=== PATIENT | female | born 1990 | race Caucasian/White ===

== ENCOUNTER 2020-05-25 18:04 | Emergency (ER) | payer BC, SELFPAY ==
--- NOTE | ~2020-05-25 | XR_ITS ---
EXAMINATION: LEFT ANKLE 2 VIEWS LEFT FOOT 3 VIEWS LEFT TIB-FIB 2 VIEWS CLINICAL INFORMATION: Pain status post fall COMPARISON: None TECHNIQUE: As above nonweightbearing FINDINGS: Acute erosion type fracture subluxation of the ankle joint. Transversely oriented fracture medial malleolus at the level the ankle mortise. Mild comminuted minimally displaced fracture distal fibula diaphysis. Widening of the medial ankle mortise. No fracture fragments seen within the joint space. No proximal tibiofibular abnormality. No mid or forefoot abnormality. Subtalar joint intact. XR/XR ankle LT 2V IMPRESSION: Eversion type fracture subluxation about the ankle joint as above.
--- NOTE | ~2020-05-25 | XR_ITS ---
EXAMINATION: LEFT ANKLE 2 VIEWS LEFT FOOT 3 VIEWS LEFT TIB-FIB 2 VIEWS CLINICAL INFORMATION: Pain status post fall COMPARISON: None TECHNIQUE: As above nonweightbearing FINDINGS: Acute erosion type fracture subluxation of the ankle joint. Transversely oriented fracture medial malleolus at the level the ankle mortise. Mild comminuted minimally displaced fracture distal fibula diaphysis. Widening of the medial ankle mortise. No fracture fragments seen within the joint space. No proximal tibiofibular abnormality. No mid or forefoot abnormality. Subtalar joint intact. XR/XR foot LT 2V IMPRESSION: Eversion type fracture subluxation about the ankle joint as above.
--- NOTE | ~2020-05-25 | XR_ITS ---
EXAMINATION: LEFT ANKLE 2 VIEWS LEFT FOOT 3 VIEWS LEFT TIB-FIB 2 VIEWS CLINICAL INFORMATION: Pain status post fall COMPARISON: None TECHNIQUE: As above nonweightbearing FINDINGS: Acute erosion type fracture subluxation of the ankle joint. Transversely oriented fracture medial malleolus at the level the ankle mortise. Mild comminuted minimally displaced fracture distal fibula diaphysis. Widening of the medial ankle mortise. No fracture fragments seen within the joint space. No proximal tibiofibular abnormality. No mid or forefoot abnormality. Subtalar joint intact. XR/XR tibia fibula LT 2V IMPRESSION: Eversion type fracture subluxation about the ankle joint as above.
[2020-05-25 18:12] VITALS: BP 143/99; PULSE 114; RESP 18; TEMP 36.1; O2SAT 99
[2020-05-25 18:19] VITALS: BP 143/99; PULSE 114; RESP 18; TEMP 36.1; O2SAT 99; BMI 27.4
--- NOTE | 2020-05-25 18:23 | ED_ITS ---
HPI - Extremity Injury (Lower) General Chief Complaint: Extremity Injury, Lower Stated Complaint: foot inj Time Seen by Provider: 05/25/20 18:14 Source: patient and family Mode of arrival: wheelchair Limitations: no limitations History of Present Illness HPI Narrative: 30-year-old female here with left ankle pain. The patient tells me that she was roller-skating and came to a stop her ankle then inverted and she fell landing onto the ankle. Denies hitting her head or loss of consciousness. Having pain and swelling over the ankle now. No previous injury. Related Data Previous Rx's Medication Instructions Recorded ibuprofen 600 mg PO TID PRN #20 tab 05/25/20 oxycodone 5 mg PO Q6H PRN #15 tab 05/25/20 Allergies Allergy/AdvReac Type Severity Reaction Status Date / Time No Known Allergies Allergy Verified 05/25/20 18:21 Review of Systems Review of Systems: Yes all other systems are reviewed and are negative Constitutional: Constitutional: Reports no additional constitutional complaints, Denies body ache(s), Denies chills, Denies fever(s), Denies headache(s) and Denies weakness Eyes: Eyes: Reports no additional eye complaints and Denies change in vision ENT: Reports system reviewed and no additional complaints, except as documented, Denies dizziness, Denies headache(s), Denies nasal congestion, Denies nasal discharge and Denies neck pain Cardiovascular: Cardiovascular: Reports no additional cardiovascular complaints, Denies chest pain, Denies leg edema and Denies dyspnea Respiratory: Respiratory: Reports no additional respiratory complaints, Denies cough and Denies dyspnea Gastrointestinal: Gastrointestinal: Reports no additional gastrointestinal complaints, Denies abdominal pain, Denies diarrhea, Denies nausea and Denies vomiting Genitourinary: Genitourinary: Reports no additional female genitourinary complaints and Denies urinary incontinence Musculoskeletal: Musculoskeletal: Reports no additional musculoskeletal complaints, Denies back pain, Reports arthralgias, Reports joint swelling, Rep orts limited range of motion, Denies neck pain, Denies numbness and Denies tingling Integumentary/Breasts: Skin/Breast: Reports system reviewed and no additional complaints, except as docu and Denies rash Neurologic: Reports system reviewed and no additional complaints, except as documented, Denies Abnormal speech present, Denies dizziness, Denies headache(s), Denies numbness, Denies tingling and Denies weakness PMFSH Past Medical History Attestation statement: The following information was validated with the patient. Source: old records reviewed and nursing notes reviewed Medical History No known health problems Social History Social History Advance Directives: No Advance Directives Information Provided: No Physical Exam Vital Signs: Vital Signs: Last Vital Signs Temp 97.0 F 05/25/20 18:19 Pulse 114 H 05/25/20 18:19 Resp 18 05/25/20 18:19 BP 143/99 H 05/25/20 18:19 Pulse Ox 99 05/25/20 18:19 Body Mass Index 27.4 Const: General: cooperative, healthy appearing, comfortable and no acute distress Orientation/consciousness: patient oriented x3 Limitations: no limitations HENMT: Head: Yes normal to inspection Ears: hearing grossly normal bilaterally General nose exam: Normal external nose present Face and sinus: Yes normal facial exam Mouth: Normal oral and palatal mucosa present Throat: Yes posterior oropharynx normal Eyes: General: appearance normal, both eyes and all related structures Pupils: Equal, round and reactive pupils present Neck: Neck: Yes normal visual inspection Chest: Chest palpation & inspection: normal inspection of the chest Resp: Effort & Inspection: normal respiratory effort Auscultation: clear to auscultation bilaterally Cardio: Rate: regular rate Rhythm: regular rhythm Peripheral pulses: Peripheral pulses 2+ throughout GI: Inspection: Yes normal to inspection Palpation (GI): Soft to palpation and nontender Auscultation: normal bowel sounds Back/Spine/Pelvis: Thoracic/Lumbar Spine: thoracic and lumbar spine normal to inspection Skin: General skin exam: no rashes or lesions noted Neuro: General: patient oriented x3, no focal motor deficits and normal sensation to monofilament Cranial nerves: Yes Equal, round and reactive pupils present Cognition (Neuro): normal cognition Speech: No Abnormal speech present Gait exam (Neuro): Normal gait present Motor exam (neuro): 5/5 motor strength present throughout Extrem: Other: Swelling moderate with deformity over the left medial aspect of the ankle. No tenting of the skin. CMS intact distally to the ankle. Palpable pulse. Able to plantar flex and dorsiflex the foot. No pain over the foot General: Yes normal to inspection Course Course Course Narrative: Left ankle pain status post inversion injury. Will need x- rays and analgesia 0-X-ray shows acute erosion type fracture subluxation of the ankle joint. Transversely oriented fracture medial malleolus at the level the ankle mortise. Mild comminuted minimally displaced fracture distal fibula diaphysis. Widening of the medial ankle mortise. No fracture fragments seen within the joint space. Discussed patient with Clotilde PEARSON from Orthopedics. Recommended patient being placed in a stirrup and posterior splint with crutches and nonweightbearing and following up in the office. Patient placed in splint with extra padding. Crutches with teaching by tech. Reviewed worrisome signs and symptoms including paresthesias, cold pill foot, severe pain and when to return to the emergency department. Comfortable discharge home. Procedures Orthopedic Splinting/Casting Injury #1: Side: left Lower Extremity Injury Location: lower leg Lower Extremity Immobilizer: posterior splint and stirrup splint Other Orthopedic Equipment: crutches MDM - Extremity Injury (Lower) Medical Records Attestation: I reviewed the patient's medical records. Lab Data Attestation: I reviewed the patient's lab results. Imaging Data Left tibia/fibula/ankle/foot: Attestation: I personally reviewed and interpreted this imaging study as follows: Radiologist's impression: Acute erosion type fracture subluxation of the ankle joint. Transversely oriented fracture medial malleolus at the level the ankle mortise. Mild comminuted minimally displaced fracture distal fibula diaphysis. Widening of the medial ankle mortise. No fracture fragments seen within the joint space. No proximal tibiofibular abnormality. No mid or forefoot abnormality. Subtalar joint intact. Discharge Plan Discharge Clinical Impression: Closed fracture of medial malleolus of left ankle, Left fibular fracture Patient Disposition: Home, Self-Care Instructions: Ankle Fracture (ED) Additional Instructions: ELEVATION IS THE MOST IMPORTANT THING ON 3 OR MORE PILLOWS Ice 20 minutes on and 20 minutes off Strict non weight bearing If you do not hear from orthopedics by Tuesday then give them a call Return here for numbness/tingling or pale/cold foot The splint cannot get wet Prescriptions: New ibuprofen 600 mg tablet 600 mg PO TID PRN (Reason: pain) Qty: 20 RF: 0 oxycodone 5 mg tablet 5 mg PO Q6H PRN (Reason: pain) Qty: 15 RF: 0 Referrals: Gómez Man PA-C [Phys[facility]] - 2 days Stand Alone Forms: Work/School Release
[2020-05-25] MEDS: oxyCODONE HCl Immed Release 5 MG TABLET PO (18:35)
[2020-05-25] MEDS: Ibuprofen 800 MG TABLET PO (18:36)
--- NOTE | 2020-05-25 19:19 | PC.NURSE ---
SHORT LEG AND STIRRUP SPLINT APPLIED TO PATIENTS L LEG.
== END 2020-05-25 19:15 | disposition home or self-care (01) ==
PROVIDERS: Emergency Provider Internal Medicine
DX: S82.52XA Displaced fracture of medial malleolus of left tibia, initial encounter for closed fracture (principal); M25.572 Pain in left ankle and joints of left foot; Y93.51 Activity, roller skating (inline) and skateboarding; Y92.410 Unspecified street and highway as the place of occurrence of the external cause; Y99.9 Unspecified external cause status; Z79.899 Other long term (current) drug therapy
CPT/HCPCS: 29515; 73590; 73600; 73620; 99283; 99284

== ENCOUNTER → 2020-05-27 12:55 | Outpatient (BNVA) | payer BC, SELFPAY | PROVIDERS: Visit Provider Physician Assistant ==

== ENCOUNTER → 2020-05-30 12:00 | Day surgery (SDC) | payer BC, SELFPAY ==
[2020-05-29 09:41] VITALS: BMI 27.4
--- NOTE | 2020-05-30 12:54 | PC.NURSE ---
DR. POWER AT BEDSIDE AND ACCESSED PATIENTS LEFT LOWER EXTREMITY/ANKLE. PROCEDURE BEING CANCELLED RELATED TO BLISTERS, ETC. DR. POWER DOES NOT FEEL PATIENT READY FOR SURGERY.
--- NOTE | 2020-05-30 13:09 | MHC.MBSS ---
DR. POWER PLACING A NEW DRESSING ON PATIENT'S LEFT LOWER EXTREMITY/ANKLE. DR. POWER EXPLAINING EVERYTHING TO PATIENT AND PT'S FAMILY. PT TO BE RESCHEDULED. Unspecified fracture of shaft of unspecified fibula, initial encounter for closed fracture (05/30/20) Displaced fracture of medial malleolus of left tibia, initial encounter for closed fracture (05/30/20)
--- NOTE | 2020-05-30 13:41 | PC.NURSE ---
JANNET DOMÍNGUEZ GAVE PATIENT DISCHARGE INSTRUCTIONS AND PATIENT TO BE RESCHEDULED FOR NEXT WEEK. PATIENT BROUGHT DOWN IN WC AND HER FIANCE DROVE HER HOME.
== END ==
PROVIDERS: Visit Provider Orthopaedic Surgery
DX: S82.52XA Displaced fracture of medial malleolus of left tibia, initial encounter for closed fracture (principal); Z53.09 Procedure and treatment not carried out because of other contraindication; S90.522A Blister (nonthermal), left ankle, initial encounter; W18.39XA Other fall on same level, initial encounter; X50.1XXA Overexertion from prolonged static or awkward postures, initial encounter; Y93.51 Activity, roller skating (inline) and skateboarding; Y92.9 Unspecified place or not applicable; Y99.8 Other external cause status

== ENCOUNTER 2020-06-03 09:07 | Day surgery (SDC) | payer BC, SELFPAY ==
[2020-06-03] VITALS (7 sets, daily range): BP systolic 126–146; BP diastolic 77–88; PULSE 103–130; RESP 16–18; TEMP 36.6–36.9; O2SAT 96–100; BMI 28.3
--- NOTE | ~2020-06-03 | FL_ITS ---
EXAMINATION: Intraoperative fluoroscopy CLINICAL INFORMATION: Left ankle ORIF COMPARISON: Left ankle x-rays November 24, 2020 TECHNIQUE: Intraoperative fluoroscopy was provided for use by Dr. Vargas. A total of 4 images were saved to PACS. A radiologist was not present during imaging. Today's dictation is only for administrative purposes to document intraoperative fluoroscopic usage. TOTAL FLUOROSCOPIC TIME: 0.4 minutes FL/FL guidance in OR FINDINGS~\^^ Intraoperative fluoroscopy provided for use by Dr. Vargas. Please see operative note for detailed findings.
[2020-06-03 10:51] LABS: UPreg QC Valid YES; Urine Pregnancy NEGATIVE (NEGATIVE)
--- NOTE | 2020-06-03 11:13 | P.CONAN_ITS ---
PMFSH Active Problems Active Problems: All Active Problems (Updated 05/27/20 @ 14:47 by Kiki shelley PA-C) Closed fracture shaft of fibula (Acute) Fracture of medial malleolus of left tibia (Acute) Past Medical History Medical History No known health problems Social History Social History (Updated 05/27/20 @ 13:03 by Cecy Stovall) Smoking Status: Current some day smoker Use of substances other than those prescribed or required for medical reasons: Yes Advance Directives: No Advance Directives Information Provided: Yes Current occupational status: employed Current occupation: [employer] max/right handed Meds Allergies Allergy/AdvReac Type Severity Reaction Status Date / Time No Known Allergies Allergy Verified 06/03/20 11:02 Exam Exam Date and Time: June 03, 2020 1113 Height,Weight and Vital Signs: Height 5 ft 2 in Weight 70.307 kg Last Vital Signs Temp 97.8 F 06/03/20 11:05 Pulse 104 H 06/03/20 11:05 Resp 16 06/03/20 11:05 BP 126/84 06/03/20 11:05 Pulse Ox 98 06/03/20 11:05 Pertinent Lab Results Pertinent Lab Results: Laboratory Tests 06/03/20 10:35 Urine Test NEGATIVE Airway Mallampati Class: I TM Dist: >3cm Neck ROM: Full Loose/Missing/Broken Teeth: No Heart: RRR Lungs: NL Assessment and Plan Assessment Anesthesia Assessment: Anesthesia Plan Discussed and Chart Reviewed Final Anesthetic Review NPO: Yes ASA Class: I Final Preanesthetic Review: No Changes in Pt Med Stat, Meds/Allgs Chart Reviewed, Consent Obtained/Reviewed and Anes Risks/Benef Reviewed Patient Risk: Low Procedure Risk: Low Anesthetic Plan Anesthetic Plan: GA Disposition: Standard PACU
--- NOTE | 2020-06-03 12:10 | MHC.SHP ---
Pre-Procedural Eval Section A The patient is an INPATIENT: No Changes since office visit: Yes Patient answered all questions; No Cold of Flu in the past 2 weeks, No New Medical Problems and No Changes in Medication The History & Physical has been completed within 30 days and I have reviewed it.: Yes Section B Chief Complaint: malleolus of left tibia Allergies: Allergies Allergy/AdvReac Type Severity Reaction Status Date / Time No Known Allergies Allergy Verified 06/03/20 11:02 Plan I have reviewed the history and physical and performed a pertinent physical examination on my patient. No changes have occurred unless specified.
--- NOTE | 2020-06-03 14:35 | PM.OP ---
Brief Operative Note Date of Service: 06/03/20 Pre-op diagnosis: left trimalleolar ankle fracture Post-op diagnosis: same Procedure: ORIF sneha ORIF syndesmosis Implants: Maria G 1/3 tubular plate with 3 interfragmentary screws, 2 36 mm partially threaded cannulated medial malleolar screws and Arthrex syndesmosis tightrope x1 Surgeon: Ernie Vargas MD Anesthesia: GETA and regional Manager Wholesale: Gómez Man Estimated blood loss (mL): 5 Tourniquet time (min): 120 IV fluids (mL): 1,200 Pathology: none sent Condition: stable Disposition: PACU
--- NOTE | 2020-06-03 14:41 | W.PM.OPN ---
Operative Note Operative Note Date of Service: 06/03/20 Narrative: Pre-op diagnosis: left trimalleolar ankle fracture Post-op diagnosis: same Procedure: ORIF sneha ORIF syndesmosis Implants: [place] 1/3 tubular plate with 3 interfragmentary screws, 2 36 mm partially threaded cannulated medial malleolar screws and Arthrex syndesmosis tightrope x1 Surgeon: Ernie Vargas MD Anesthesia: GETA and regional Crossbar Frame Wirer: Gómez Man Estimated blood loss (mL): 5 Tourniquet time (min): 120 IV fluids (mL): 1,200 Pathology: none sent Condition: stable Disposition: PACU Procedure in detail: Patient was brought to the operating room and placed supine on the surgical table. She was prepped and draped in standard sterile fashion and a time out was called to identify proper site, proper procedure and IV antibiotics per weight were administered. Her left hip was bumped. I began by making a 10 cm incision centered over the high fibula fracture. Sharp dissection was taken down distally and proximally blunt dissection with a Littler's scissor was performed and to avoid the superficial peroneal nerve which was not encountered. The fracture was identified. It was comminuted with 2 large fragments including 1 large posterior oblique fragment extending proximally up additional 5 cm. I irrigated the fracture site and removed necrotic debris. I then reduced the fracture a with two lobster claw tenaculums and, using standard AO technique, 3 interfragmentary screws were placed to hold my reduction. Biplanar fluoroscopy was used to confirm reduction and hardware placement. I then placed a 1/3 tubular plate laterally with 6 cortices distal and 8 cortices proximal to the fracture site. Albeit there was an oblique fracture fragment extending proximally and was unavoidable terms of spanning the fracture. Nevertheless I had excellent stability. Standard AO technique was used and biplanar imaging was used to confirm position. Soft tissues were protected at all times. Once I was satisfied with the fibular reduction I turned my attendtion to the medial malleolus. A curvilinear incision was made between the 2 healed fracture blisters and the medial malleolus was identified large transverse fracture was identified. Again the fracture was cleaned out with a curette and irrigation and a tenaculum was used to reduce the fracture. Two threaded K-wires were placed from distal to proximal traversing the fracture site. These were inserted in-parallel on both AP and lateral projections. I then over drilled these and placed 2 36 mm partially threaded cannulated screws. I had excellent compression at the fracture site and fluoroscopy that demonstrated extra-articular position of the hardware and anatomic reduction of the medial malleolus. Given how high the fibula fracture was I performed an external rotation test with slight widening of the syndesmosis but given the trimalleolar nature of the fracture and how high the fibula fracture was I elected to place a tightrope through the most distal hole of the 1/3 tubular plate. This was placed parallel to the joint and in a slightly a posterior to anterior inclination. Tight rope was placed in the suture button was tied to the fibular plate. Again I was happy with the position of the hardware and the fracture reduction using biplanar fluoroscopy and under direct visualization. I then irrigated copiously closed with absorbable suture and keiko. Patient was placed into a well-padded posterior splint. She was then extubated brought to recovery room in stable condition there were no complications.
== END 2020-06-03 15:55 | disposition home or self-care (01) ==
PROVIDERS: Anesthesiology; Visit Provider Orthopaedic Surgery
PROC: (CPT 27814; principal; 2020-06-03 10:30)
DX: S82.52XA Displaced fracture of medial malleolus of left tibia, initial encounter for closed fracture (principal); S82.492A Other fracture of shaft of left fibula, initial encounter for closed fracture; X58.XXXA Exposure to other specified factors, initial encounter; Y93.9 Activity, unspecified; Y92.9 Unspecified place or not applicable; Y99.8 Other external cause status; Z79.899 Other long term (current) drug therapy; F17.210 Nicotine dependence, cigarettes, uncomplicated
CPT/HCPCS: 27814; 81025; C1713; J0690; J1100; J1170; J2250; J2405; J3010

== ENCOUNTER 2020-06-16 09:10 | Outpatient (REF) | payer BC, SELFPAY ==
--- NOTE | ~2020-06-16 | XR_ITS ---
EXAMINATION: XR ANKLE, LEFT CLINICAL INFORMATION: Displaced medial malleolar fracture. COMPARISON: Left tibia and fibula 05/25/2020. Fluoroscopy exam 06/03/2020. TECHNIQUE: AP, lateral, and mortise views of the left ankle. FINDINGS: The comminuted distal fibular fracture has been stabilized with lateral metallic plate and screws. Medial malleolar fracture has been stabilized with 2 cancellous screws and metallic button along medial malleolar cortex. XR/XR ankle LT min 3V IMPRESSION: Stabilized distal fibular fracture and medial malleolar fracture with internal hardware. It is stable compared to fluoroscopy exam 06/03/2020.
== END 2020-06-16 09:11 | disposition home or self-care (01) ==
LOC: HO.HOSX 09:10
PROVIDERS: Visit Provider Physician Assistant
DX: S82.409A Unspecified fracture of shaft of unspecified fibula, initial encounter for closed fracture (principal); S82.52XA Displaced fracture of medial malleolus of left tibia, initial encounter for closed fracture; X58.XXXA Exposure to other specified factors, initial encounter; Y93.9 Activity, unspecified; Y92.9 Unspecified place or not applicable; Y99.8 Other external cause status; F17.200 Nicotine dependence, unspecified, uncomplicated
CPT/HCPCS: 73610

== ENCOUNTER 2020-07-14 07:54 | Outpatient (REF) | payer BC, SELFPAY ==
--- NOTE | ~2020-07-14 | XR_ITS ---
EXAMINATION: XR ANKLE, LEFT CLINICAL INFORMATION: Follow up fracture. COMPARISON: Left ankle 06/16/2020. TECHNIQUE: AP, lateral, and mortise views of the left ankle. FINDINGS: There is a lateral fibular plate and screws stabilizing the mid to distal fibular fracture in alignment. There are 2 medial malleolar screws and a solitary metallic button along the medial malleolus stabilizing the medial malleolar fracture. The ankle mortise and subtalar joints are normal. There is bimalleolar soft tissue swelling. XR/XR ankle LT min 3V IMPRESSION: Stabilized lateral fibular and medial malleolar fractures with hardware. The hardware is in good alignment and unchanged compared to the 06/16/2020 exam.
== END 2020-07-14 07:55 | disposition home or self-care (01) ==
LOC: HO.HOSX 07:54
PROVIDERS: Visit Provider Physician Assistant
DX: S82.52XD Displaced fracture of medial malleolus of left tibia, subsequent encounter for closed fracture with routine healing (principal); S82.402D Unspecified fracture of shaft of left fibula, subsequent encounter for closed fracture with routine healing
CPT/HCPCS: 73610

== ENCOUNTER 2020-08-22 07:27 | Outpatient (REF) | payer BC, SELFPAY ==
--- NOTE | ~2020-08-22 | XR_ITS ---
EXAMINATION: XR ANKLE, LEFT CLINICAL INFORMATION: Follow-up fracture COMPARISON: Previous x-rays most recent July 2020 TECHNIQUE: AP, lateral, and mortise views of the left ankle. FINDINGS: There is a plate and screws transfixing the distal fibular shaft fracture. There are 2 screws in the medial malleolus and medial button. Orthopedic hardware appears unchanged. Fibular shaft fracture is still seen. Posterior and medial malleolar fractures are normal. The ankle mortise is normal. Soft tissues are normal. XR/XR ankle LT min 3V IMPRESSION: ORIF of trimalleolar fracture
== END 2020-08-22 07:28 | disposition home or self-care (01) ==
LOC: HO.HOSX 07:27
PROVIDERS: Visit Provider Physician Assistant
DX: S82.402D Unspecified fracture of shaft of left fibula, subsequent encounter for closed fracture with routine healing (principal); S82.52XD Displaced fracture of medial malleolus of left tibia, subsequent encounter for closed fracture with routine healing; Z98.890 Other specified postprocedural states
CPT/HCPCS: 73610

== ENCOUNTER → 2020-10-03 12:36 | Outpatient (BNVA) | payer BC, SELFPAY | PROVIDERS: PCP Family Medicine; Visit Provider Physician Assistant ==

== ENCOUNTER 2020-10-22 10:00 | Outpatient (RCR) | payer BC, SELFPAY ==
--- NOTE | 2020-07-24 12:59 | MHC.PT.EP ---
[facility] [place] Office [place] Office [place] Office [address] Juan M Delcid [address] [phone] F: [phone] F: [phone] F: [phone] F: [phone] Physical Therapy Plan of Care Date of Evaluation: Date of Surgery: 06/03/20 Diagnosis: Unspecified fx of shaft of unspecified fibula Displaced fx of medial malleolus of L tibia Instructions: s/p ORIF PMB w crutches x 2wks -->transition to cane Assessment: 30 y/o female referred to PT following fibular fx and displaced fx of medial malleolus. Per pt report, she was rollerblading when she rolled her L ankle, then fell on top of it. Pt underwent ORIF surgery to L ankle on 06/03/20. Pt currently ambulates with B axillary crutches and is TTWB in a L boot. Pt complains of limitation in functional abilities including gait, stairs, surgical physician assistant, and carrying objects. Examination shows decreased L ankle ROM, decreased L ankle strength, decreased L gastroc length, impaired balance, and impaired gait. Recommend PT 2x/week for 8 weeks to address impairments, implement HEP, and optimize functional mobility. Frequency and Duration: The patient will be seen 2x/week for 8 weeks Short Term Goals: 4 weeks: 1. I with HEP 2. Increase L ankle AROM by 10 degrees 3. Increase L ankle strength by 1 MMT grade Manufacturer'S Service Representative Goals: 8 weeks: 1. I with HEP and self-management of sx 2. Pt will be able to ambulate without AD for >30 mins with <3/10 pain 3. Pt will be able to navigate stairs with <3/10 pain Treatment Plan: Modalities to reduce pain, spasms and effusion. Manual therapy to restore motion and function. Therapeutic exercise to improve strength and flexibility. Neuromuscular re-education for posture and balance. Therapeutic activities to return to functional activities of daily living. Electronically signed by: Ivonne Rivas PT Please sign and return to therapist. Thank you for your referral.
--- NOTE | 2020-10-22 13:21 | MHC.PT.DC ---
[facility] [place] Office [place] Office [place] Office [address] Juan M Delcid [address] [phone] F: [phone] F: [phone] F: [phone] F: [phone] Physical Therapy Discharge Report Diagnosis: Unspecified fx of shaft of unspecified fibula Displaced fx of medial malleolus of L tibia Date of Surgery: 06/03/20 Date of Evaluation: 07/24/20 Date of Discharge: 10/22/20 Treatments to Date: 21 Cancellations to Date: 0 No Shows to Date: 0 Discharge Status: Achieved Goals Improved Function Independent with HEP Patient Elected to Stop Discharge Summary: Pt comes to appointment reporting ready for DC. She has been cleared by orthopedic. The patient is I with HEP and is pain free. Her ankle ROM is WNL and BLE strength 5/5. She is now ambulating without gait impairments and is no longer using boot. Pt DC to HEP at this time. LEFs improved to 74/80 Electronically signed by: Wendy Xiao PT Please sign and return to therapist. Thank you for your referral.
== END 2020-10-22 13:21 | disposition home or self-care (01) ==
LOC: HO.PTCHIC 10:00
PROVIDERS: PCP Family Medicine; Visit Provider Physician Assistant
DX: S82.52XA Displaced fracture of medial malleolus of left tibia, initial encounter for closed fracture (principal); S82.402A Unspecified fracture of shaft of left fibula, initial encounter for closed fracture
CPT/HCPCS: 97110; 97112; 97116; 97140; 97161; 97530